=== PATIENT | male | born 2000 | race Caucasian/White ===

== ENCOUNTER 2019-02-13 18:21 | Emergency (ER) | payer OTHER ==
[2019-02-13] MEDS ORDERED: methylPREDNISolone SOD SUCC 125 MG/2 ML VIAL IVP ONE (18:36)
[2019-02-13] MEDS ORDERED: RANITIDINE 50 MG/2 ML VIAL IVP ONE (18:36)
[2019-02-13] MEDS ORDERED: NS 1,000 ML IV ONE (18:36)
--- NOTE | 2019-02-13 18:43 | EDPHY ---
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 Has had to use epi one time in past. Asymptomati - Personal History Current Tetanus Diphtheria and Acellular Pertussis (TDAP): Yes - Medical/Surgical History Hx Asthma: No Hx Chronic Respiratory Disease: No Hx Diabetes: No Hx Cardiac Disease: No Hx Renal Disease: No Hx Cirrhosis: No Hx Alcoholism: No Hx HIV/AIDS: No Hx Splenectomy or Spleen Trauma: No Other PMH: denies - Social History Smoking Status: Unknown if ever smoked Time Seen by Provider: 02/13/19 18:28 HPI/ROS: CHIEF COMPLAINT: Ate shellfish, history of allergic reaction to shellfish, concerns he may develop an allergic reaction HISTORY OF PRESENT ILLNESS: 18-year-old male with 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 615 today he ate pasta which unbeknownst to the patient contained lobster. He became concerned that he may develop an allergic reaction, contact his father who is a physician who recommend he come to the ER for observation. Patient states that he prefers to be in the ER for observation verses in his dormitory. He denies complaints at this time. Specifically, he denies itching, dyspnea, wheezing, abdominal pain, vomiting, tonsillar glossal enlargement REVIEW OF SYSTEMS: 10 systems reviewed and negative with the exception of the elements mentioned in the history of present illness PAST MEDICAL & SURGICAL HISTORY: Prior anaphylaxis to seafood SOCIAL HISTORY:Student. Nonsmoker. PHYSICAL EXAM (Prior to examination, patient consented to physical exam, hands were washed and my usual and customary physical exam procedures followed) 1) GENERAL: Well-developed, well-nourished, alert and oriented. Appears to be in no acute distress. Smiling. 2) HEAD: Normocephalic, atraumatic 3) HEENT: Pupils equal, round, reactive to light bilaterally. Sclera anicteric. Nasopharynx, oropharynx, clear, no lesions. No tonsillar or glossal enlargement. 4) NECK: Full range of motion, no meningeal signs. 5) LUNGS: Clear auscultation bilaterally, no wheezes, no rhonchi, no retractions. 6) HEART: Regular rate and rhythm, no murmur, no heave, no gallop. 7) ABDOMEN: No guarding, no rebound, no focal tenderness, negative McBurney's, negative Bailey's, negative Rovsing's, negative peritoneal sign, 8) MUSCULOSKELETAL: Moving all extremities, no focal areas of tenderness, no obvious trauma. No peripheral edema or discoloration. 9) BACK: No CVA tenderness, no midline vertebral tenderness, no fluctuance, no step-off, no obvious trauma, no visual or palpable abnormality. 10) SKIN: No rash, no petechiae. No itching. No urticaria. 11) Psychiatric: Patient is oriented X 3, there is no agitation. DIFFERENTIAL DIAGNOSIS: In no particular order including but not limited to urticaria, anaphylaxis, anaphylactoid reaction (Marshall Blanchard) Constitutional: Initial Vital Signs Temperature (C) 36.9 C 02/13/19 18:25 Heart Rate 89 02/13/19 18:25 Respiratory Rate 22 H 02/13/19 18:25 Blood Pressure 148/74 H 02/13/19 18:25 O2 Sat (%) 98 02/13/19 18:25 O2 Delivery Mode Room Air Allergies/Adverse Reactions: shellfish derived Allergy (Verified 02/13/19 18:24) Home Medications: Medication Instructions Recorded EPINEPHrine 02/13/19 predniSONE [Prednisone] 60 mg PO DAILY #9 tablet 02/13/19 Medical Decision Making ED Course/Re-evaluation: 6:40 p.m.: This patient has 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 He ate lobster containing pasta at approximately 6:15 a.m. today. He is currently asymptomatic. He has not ingested any pre-hospital medications. At this time I will hold on epinephrine, will administer however H1 H2 blockers and Solu- Medrol and IV fluid and observe the patient for a period of time. 9:04 p.m.: Patient has been observed in the ER for multiple hours. I re- evaluated the patient at this time, sleeping but easily woken. He remains asymptomatic. I do not think that epinephrine indicated at this time. He lives nearby in the dormitory. At this time I think the patient can be discharged. He has his own EpiPen which is not . We discussed possibility of biphasic reaction. He has been given steroid in the ER. Discharged with prednisone 60 mg x3 days. He feels comfortable being discharged. Care of patient under supervision of secondary supervising physician Dr Triplett . (Marshall Blanchard) The patient was evaluated and managed by the physician wellness assistant. I have reviewed this chart and I agree with the findings and plan of care as documented , as indicated by my signature. I am the secondary supervising physician. ( Amelia Trpilett) - Data Points Medications Given: Discontinued Medications Diphenhydramine HCl (Benadryl Injection) 50 mg IVP EDNOW ONE Stop: 02/13/19 18:37 Last Admin: 02/13/19 18:44 Dose: 50 mg Sodium Chloride (Ns) 1,000 mls @ 0 mls/hr IV ONCE ONE; Wide Open PRN Reason: Protocol Stop: 02/13/19 18:37 Last Admin: 02/13/19 18:59 Dose: 1,000 mls Methylprednisolone Sodium Succinate (Solu-Medrol) 125 mg IVP EDNOW ONE Stop: 02/13/19 18:37 Last Admin: 02/13/19 18:44 Dose: 125 mg Ranitidine HCl (Zantac) 50 mg IVP EDNOW ONE Stop: 02/13/19 18:37 Last Admin: 02/13/19 19:00 Dose: 50 mg Departure - Departure Disposition: Home, Routine, Self-Care Clinical Impression: History of allergy to seafood Condition: Good Instructions: Food Allergy (ED) Additional Instructions: At the 1st sign of allergic reaction, use your EpiPen and call 911. Referrals: Carmen Noble MD [[facility] [place] Primary Care Provider] - 2-3 days, call for appt. Stand Alone Forms: School Excuse Prescriptions: predniSONE [Prednisone] 60 mg PO DAILY #9 tablet
[2019-02-13 21:21] VITALS: BP 132/66
== END 2019-02-13 21:20 | disposition home or self-care (01) ==
DX: E86.9 Volume depletion, unspecified (principal); Z87.892 Personal history of anaphylaxis; Z91.013 Allergy to seafood
CPT/HCPCS: 96374; J1200; J2780; J2930